=== PATIENT | female | born 1970 | race African-American/Black ===

== ENCOUNTER 2018-09-19 19:42 | Emergency (ER) | payer MEDICAID ==
[~2018-09-19] VITALS: Ht 165.1 cm; Wt 90.7 kg
[2018-09-19 19:48] VITALS: BP 200/116
--- NOTE | 2018-09-19 20:25 | NUR ---
ED Nurse Note: Pt BIBA from home, pt called 911 after smoking marijuana. Pt reports feeling chest wall tightness and is sedated. Pt is A&Ox3. Hx of HTN, BP 182/116 upon arrival
[2018-09-19 20:29] LABS: BASOPHILS % (AUTO) 1.9 % (0.0-2.0); HEMATOCRIT 35.5 % (37.0-47.0); HEMOGLOBIN 11.6 G/DL (12.0-16.0); LYMPHOCYTES % (AUTO) 45.3 % (20.0-45.0); MEAN CORPUSCULAR VOLUME 85 FL (80-99); MONOCYTES % (AUTO) 4.2 % (1.0-10.0); NEUTROPHILS % (AUTO) 45.6 % (45.0-75.0); PLATELET COUNT 339 K/UL (150-450); RED BLOOD COUNT 4.17 M/UL (4.20-5.40); RED CELL DISTRIBUTION WIDTH 14.9 % (11.6-14.8); WHITE BLOOD COUNT 6.4 K/UL (4.8-10.8)
[2018-09-19 20:43] LABS: ANION GAP 11 mmol/L (5-15); BLOOD UREA NITROGEN 14 mg/dL (7-18); CARBON DIOXIDE 24 MMOL/L (21-32); CHLORIDE 105 MMOL/L (98-107); CREATININE 0.9 MG/DL (0.55-1.30); SODIUM 140 MMOL/L (136-145)
[2018-09-19 20:47] LABS: ALANINE AMINOTRANSFERASE 16 U/L (12-78); ALBUMIN 3.6 G/DL (3.4-5.0); ALKALINE PHOSPHATASE 70 U/L (46-116); ASPARTATE AMINO TRANSFERASE 21 U/L (15-37); BILIRUBIN,TOTAL 0.3 MG/DL (0.2-1.0)
[2018-09-19 20:47] LABS: APPEARANCE,URINE CLEAR; BILIRUBIN, URINE NEGATIVE (NEGATIVE); GLUCOSE, URINE (UA) NEGATIVE (NEGATIVE); KETONES,URINE NEGATIVE (NEGATIVE); LEUKOCYTE ESTERASE ,URINE NEGATIVE (NEGATIVE); NITRITE,URINE NEGATIVE (NEGATIVE); PH,URINE 6.5 (4.5-8.0); PROTEIN,URINE NEGATIVE (NEGATIVE); UROBILINOGEN,URINE 4 MG/DL (0.0-1.0)
[2018-09-19 20:50] LABS: COLOR,URINE YELLOW
[2018-09-19 21:48] VITALS: BP 157/81
--- NOTE | 2018-09-19 22:26 | Emergency Room Report ---
History of Present Illness General Chief Complaint: Substance Abuse Source: EMS Present Illness HPI 47-year-old female presents ED for evaluation. Patient brought in by EMS from home. Patient told EMS that she smoked marijuana tonight and felt very anxious afterwards. Upon arrival patient is very lethargic. Admits to marijuana use. Denies any other drug use. Denies chest pain or shortness of breath. Denies SI or HI. Denies hearing voices. No other aggravating relieving factors. Denies any other associated symptoms Allergies: Coded Allergies: No Known Allergies (Unverified , 09/19/18) Patient History Past Medical History: none, DM, HTN Past Surgical History: none Pertinent Family History: none Social History: Reports: drug use; Denies: smoking, alcohol use Last Menstrual Period: na Now: No Immunizations: UTD Reviewed Nursing Documentation: PMH: Agreed; PSxH: Agreed Nursing Documentation-PMH Past Medical History: No Stated History Hx Hypertension: Yes Hx Diabetes: Yes - BS 182 Review of Systems All Other Systems: negative except mentioned in HPI Physical Exam Vital Signs Date Time Temp Pulse Resp B/P (MAP) Pulse Ox O2 Delivery O2 Flow Rate FiO2 09/19/18 19:38 98.2 96 20 200/116 (144) 99 Room Air 09/19/18 19:48 98 Sp02 EP Interpretation: reviewed, normal General Appearance: no apparent distress, lethargic, obese Head: normocephalic Eyes: bilateral eye normal inspection, bilateral eye PERRL ENT: normal ENT inspection Neck: normal inspection Respiratory: chest non-tender, lungs clear, normal breath sounds, speaking full sentences Cardiovascular #1: regular rate, rhythm, no edema Gastrointestinal: normal inspection Rectal: deferred Genitourinary: no CVA tenderness Musculoskeletal: normal inspection Neurologic: other - lethargic Psychiatric: other - lethargic Skin: normal inspection Lymphatic: normal inspection Medical Decision Making Diagnostic Impression: Primary Impression: Substance abuse ER Course Hospital Course 47-year-old F presents to ED with altered mental status. told EMS she smoked marijuana Differential diagnoses include: Psychosis, EtOH, drug abuse Clinical course patient placed on stretcher. On monitor worker. After initial history and physical ordered labs, IV fluids Labs reviewed-electrolytes okay, no leukocytosis, hemoglobin/hematocrit stable, tox panel + THC Remains fairly lethargic. Concern for other intracranial process. CT head ordered CT brain shows no acute pathology She is allowed to rest. Observed on monitor with stable vitals. Patient is now awake alert oriented in a.m. Denies SI or HI. Safe for discharge with close outpatient follow-up i. I feel this is a highly complex case requiring extensive working including EKG/Rhythm strip, Xray/CT/US, Blood/urine lab work, repeat exams while in ED, and administration of strong opiates/narcotics for pain control, admission to hospital or close patient follow up. Diagnosis - substance abuse Stable and discharged to home. Followup with PMD. Return to ED if symptoms recur or worsen Labs Test 09/19/18 20:22 09/19/18 20:35 White Blood Count 6.4 K/UL (4.8-10.8) Red Blood Count 4.17 M/UL (4.20-5.40) Hemoglobin 11.6 G/DL (12.0-16.0) Hematocrit 35.5 % (37.0-47.0) Mean Corpuscular Volume 85 FL (80-99) Mean Corpuscular Hemoglobin 27.8 PG (27.0-31.0) Mean Corpuscular Hemoglobin Concent 32.7 G/DL (32.0-36.0) Red Cell Distribution Width 14.9 % (11.6-14.8) Platelet Count 339 K/UL (150-450) Mean Platelet Volume 5.5 FL (6.5-10.1) Neutrophils (%) (Auto) 45.6 % (45.0-75.0) Lymphocytes (%) (Auto) 45.3 % (20.0-45.0) Monocytes (%) (Auto) 4.2 % (1.0-10.0) Eosinophils (%) (Auto) 3.0 % (0.0-3.0) Basophils (%) (Auto) 1.9 % (0.0-2.0) Sodium Level 140 MMOL/L (136-145) Potassium Level 4.0 MMOL/L (3.5-5.1) Chloride Level 105 MMOL/L (98-107) Carbon Dioxide Level 24 MMOL/L (21-32) Anion Gap 11 mmol/L (5-15) Blood Urea Nitrogen 14 mg/dL (7-18) Creatinine 0.9 MG/DL (0.55-1.30) Estimat Glomerular Filtration Rate > 60 mL/min (>60) Glucose Level 180 MG/DL (74-106) Calcium Level 9.0 MG/DL (8.5-10.1) Total Bilirubin 0.3 MG/DL (0.2-1.0) Aspartate Amino Transf (AST/SGOT) 21 U/L (15-37) Alanine Aminotransferase (ALT/SGPT) 16 U/L (12-78) Alkaline Phosphatase 70 U/L (46-116) Total Protein 7.2 G/DL (6.4-8.2) Albumin 3.6 G/DL (3.4-5.0) Globulin 3.6 g/dL Albumin/Globulin Ratio 1.0 (1.0-2.7) Salicylates Level 1.3 ug/mL (2.8-20) Acetaminophen Level < 2 MCG/ML (10-30) Serum Alcohol < 3 mg/dL Urine Color Yellow Urine Appearance Clear Urine pH 6.5 (4.5-8.0) Urine Specific [place] 1.015 (1.005-1.035) Urine Protein Negative (NEGATIVE) Urine Glucose (UA) Negative (NEGATIVE) Urine Ketones Negative (NEGATIVE) Urine Blood Negative (NEGATIVE) Urine Nitrite Negative (NEGATIVE) Urine Bilirubin Negative (NEGATIVE) Urine Urobilinogen 4 MG/DL (0.0-1.0) Urine Leukocyte Esterase Negative (NEGATIVE) Urine HCG, Qualitative Negative (NEGATIVE) Urine Opiates Screen Negative (NEGATIVE) Urine Barbiturates Screen Negative (NEGATIVE) Phencyclidine (PCP) Screen Negative (NEGATIVE) Urine Amphetamines Screen Negative (NEGATIVE) Urine Benzodiazepines Screen Negative (NEGATIVE) Urine Cocaine Screen Negative (NEGATIVE) Urine Marijuana (THC) Screen Positive (NEGATIVE) CT/MRI/US Diagnostic Results CT/MRI/US Diagnostic Results : Imaging Test Ordered: CT Head Impression no acute process Last Vital Signs Date Time Temp Pulse Resp B/P (MAP) Pulse Ox O2 Delivery O2 Flow Rate FiO2 09/19/18 19:48 98.6 79 24 200/116 96 Room Air 09/19/18 19:48 98 Status: improved Disposition: HOME, SELF-CARE Condition: Stable Referrals: NOT CHOSEN IPA/,REFERRING (PCP) Vern Ledbetter MD Sep 19, 2018 22:26
--- NOTE | 2018-09-19 22:30 | NUR ---
ED Nurse Note: Pt resting in bed semi-fowlers, eyes closed non-labored breathing, pt arousable to name, offered water and food, pt declined at this time. Will continue to monitor, VSS
[2018-09-19 23:38] VITALS: BP 145/78
--- NOTE | 2018-09-20 00:25 | NUR ---
ED Nurse Note: Pt resting in bed, semi fowlers, eyes closed non-labored breathing, attempted to wake up pt, pt opens eyes to voice but quickly falls back asleep. Offered water and food, pt declined at this time. Will continue to monitor
[2018-09-20 01:38] VITALS: BP 142/81
--- NOTE | 2018-09-20 02:07 | NUR ---
ED Nurse Note: pt resting in bed with eyes closed.Pt woke up to answer questions, pt states feeling better but quickly falls back asleep. Will continue to monitor
--- NOTE | 2018-09-20 03:49 | NUR ---
HAND-OFF: Report given to KYLAH Fish.
--- NOTE | 2018-09-20 03:50 | NUR ---
ED Nurse Note: Received report from Janina/RN. Pt is awake with drawsy. VSS, will continue to monitor.
--- NOTE | 2018-09-20 03:51 | NUR ---
ED Nurse Note: Assited pt voided at bedside commode.
--- NOTE | 2018-09-20 03:53 | NUR ---
ED Nurse Note: Pt was sent down for CT of head.
--- NOTE | 2018-09-20 04:21 | NUR ---
ED Nurse Note: Pt returned from CT.
--- NOTE | 2018-09-20 04:22 | NUR ---
ED Nurse Note: Pt wanted to call her / larry, .
--- NOTE | 2018-09-20 04:35 | NUR ---
ED Nurse Note: Called pt'nora, left voice massage.
--- NOTE | 2018-09-20 05:42 | NUR ---
ED Nurse Note: Called her by Basil Duran again, no one slate picker the phon at this time, left massage again.
--- NOTE | 2018-09-20 06:55 | NUR ---
ED Nurse Note: Breakfast provided.
--- NOTE | 2018-09-20 07:00 | NUR ---
ED Nurse Note: Pt states that her was having stroke, so, she request a Taxi to go home.
[2018-09-20 07:32] VITALS: BP 150/80
--- NOTE | 2018-09-20 07:32 | NUR ---
ER DISCHARGE NOTE: Pt was D/C'd by Gloria/Charge Nurse. Taxi Voucher provided. Patient is cleared to be discharged per ERMD. Pt is aox4 on room air with stable vital signs. Pt was given dc and prescription instructions and was able to verbalize understanding. Pt's ID band and IV site removed without complications. Pt was D/c'd from ED via wheelchair and pt took all belongings to home by Taxi.
--- NOTE | 2018-09-20 07:35 | NUR ---
discharged home with instruction and patient was send home via taxi voucher. ,spoke to patients and mother at home about she is coming home via taxi. saline lock dcd patient is awake alert oriented x 4 and ambulatory
--- NOTE | 2018-09-20 07:51 | Diagnostic Imaging Report ---
Indication: Altered mental status Technique: Continuous helical CT scanning of the head was performed without intravenous contrast material. Axial and coronal 5 mm sections were generated. Radiation dose was minimized using automated exposure control Dose: Total Dose Length Product - DLP 1358.[address] Dose Index - CTDIvol(s) 70.38 mGy. Comparison: None FINDINGS: Evaluation limited due to artifact. Within these limitations: There is no definite evidence of acute intracranial hemorrhage, mass effect or cortical edema. The ventricles, cisterns and sulci are normal for age. Visualized mastoid air cells and paranasal sinuses are unremarkable. No focal lesions of the bony calvarium or soft tissues of the scalp are seen. IMPRESSION: Limited evaluation as above. Within these limitations: No evidence of acute intracranial hemorrhage, mass effect or cortical edema. MRI may be obtained for more sensitive evaluation as clinically indicated. The CT scanner at [facility] is accredited by the [employer] and the scans are performed using protocols designed to limit radiation exposure to as low as reasonably achievable to attain images of sufficient resolution adequate for diagnostic evaluation.
== END 2018-09-20 07:45 | disposition home or self-care (01) ==
LOC: EDBD 19:42 → EMR 20:06
DX: F12.10 Cannabis abuse, uncomplicated (principal); E66.9 Obesity, unspecified; I10 Essential (primary) hypertension; E11.9 Type 2 diabetes mellitus without complications; Z68.33 Body mass index [BMI] 33.0-33.9, adult
CPT/HCPCS: 36415; 70450; 80053; 80307; 80329; 81003; 81025; 85025; 96360; 99284